=== PATIENT | female | born 2000 ===

== ENCOUNTER 2023-04-30 21:20 | Emergency (ER) | payer BC ==
[2023-04-30] MEDS ORDERED: Ketorolac Tromethamine 30 MG/ML VIAL ONE (22:26)
== END 2023-04-30 22:50 | disposition home or self-care (01) ==
LOC: ERS 21:20
DX: S60.221A Contusion of right hand, initial encounter (principal); W22.09XA Striking against other stationary object, initial encounter
CPT/HCPCS: 96372; J1885